=== PATIENT | male | born 1975 | race Caucasian/White ===

== ENCOUNTER 2021-06-17 08:33 | Outpatient (CLI) | payer OTHER, SELFPAY ==
--- NOTE | ~2021-06-17 | XR_ITS ---
XR knee RT min 4V DATE: 06/17/2021 09:00 INDICATION: Right knee pain TECHNIQUE: 4 views COMPARISON: None FINDINGS: Mild periarticular spurring at the patellofemoral joint. There is moderately prominent loss of height at the medial compartment. No fracture or dislocation or joint effusion. No radiopaque intra-articular loose body or chondrocalc inosis. No periosteal reaction or bone destruction. IMPRESSION: Mild patellofemoral osteoarthrosis Moderately prominent loss of height of medial compartment joint space Reviewed, dictated and finalized at location B.
== END 2021-06-17 08:34 | disposition home or self-care (01) ==
LOC: CHSIMG 08:39
PROVIDERS: PCP Family Medicine; Visit Provider Orthopaedic Surgery
DX: M25.561 Pain in right knee (principal)
CPT/HCPCS: 73564

== ENCOUNTER 2021-06-25 01:51 | Day surgery (SDC) | payer OTHER, SELFPAY ==
[2021-06-23 09:22] VITALS: BMI 33.2
--- NOTE | 2021-06-23 09:41 | PC.NURSE ---
Report to the Outpatient Waiting Room, entrance under the green pavilion located off [facility], at 0830 on 06-25-21. OR Time: 1030. - You and your visitor will be asked a series of questions to screen for COVID 19 for your protection. - Only one visitor is allowed at this time. - The patient visitor is requested to leave or wait in car when not with patient. - A mask is required within the hospital. Patients may have clear liquids (water, carbonated beverages, clear teas, apple juice) until 3 hours prior to surgery with a maximum of 20 ounces. 0730 - No food from midnight until time of surgery - Infants may have breast milk until 4 hours before surgery, infant formula 6 hours prior to surgery. - Children will be allowed to drink immediately following surgery. If applicable, please bring a bottle or sippy cup to assist with drinking. Juice, water, soda, and popsicles are readily available. For infants on formula, please bring formula the day of surgery. Pacifiers are allowed. Take the following medications with a SIP of water the morning of surgery: [place] if needed Medications to discontinue per physician: N/A Please no make-up, nail wolof, hairspray, perfume, deodorant, or body powder the day of surgery. No jewelry (including any body piercings) or valuables the day of surgery, leave them at home. Please take a shower or bath the night before, or the morning of, surgery with an antibacterial soap. Wear comfortable, loose fitting clothing. Children are encouraged to wear pajamas. - Jewelry must be removed prior to entering the operating room. Rings and piercings that are not removed may be cut off. - The hospital will not accept responsibility for valuables. - Please leave all valuables, including medications, at home the day of surgery. If you are going home after surgery, a licensed route delivery driver must drive you home. - NO public transportation without another adult. - We recommend that an adult stay with you for 24 hours following discharge. - We also recommend that you do not drive, make important decision, drink alcoholic beverages, or take any drugs that were not prescribed by your health care provider for at least 24 hours after your discharge time. For Pediatric surgeries, we recommend two adults accompany the child home (only one inside the building at this time). Follow any additional instructions given to you from your surgeon. If you or anyone in your household have experienced Covid symptoms in the past week, please notify your surgeon or the nurse liaison at the phone number below for possible testing. Telephone instructions given to Paul Krueger and asked if any additional questions and then verbalized understanding. Patient advised to call surgeon office or pre surgery nurse liaison [phone] if any additional questions.
--- NOTE | 2021-06-24 09:34 | WPDANESEPPF ---
Anes - Initial Pre Proc Eval Procedure: Operation Date: 06/25/21 10:30 Proposed Procedures p Right Knee Arthroscopy - Shad Meza MD Date/Time: 06/24/21 09:34 Surgeon: Shad Meza MD Pre Op Diagnosis: Right Recurrent Medial Meniscus Tear Patient Data Age: 45 Gender: M Height: 1.75 m Weight: 102.06 kg Allergies Allergy/AdvReac Type Severity Reaction Status Date / Time No Known Allergies Allergy Verified 06/25/21 11:55 Home Medications Medication Instructions Recorded Confirmed Type hydrocodone 10 mg-acetaminophen 1 tablet PO Q6H PRN 06/17/21 06/23/21 History 325 mg tablet omeprazole 40 mg capsule,delayed 40 mg PO DAILY 06/17/21 06/25/21 History release cyclobenzaprine 10 mg PO PRN PRN 06/23/21 06/23/21 History Patient hx anesthesia problems: none Family hx anesthesia problems: none Results Review: All pre-operative results and documents have been reviewed as part of the pre-operative evaluation. [facility] Past Medical History Medical History (Updated 06/24/21 @ 09:35 by Jay Crump MD) Chronic GERD HTN (hypertension) Obesity Social History Social History (Updated 06/17/21 @ 09:59 by Holli Lopez MA) Smoking status: Never smoker Tobacco type: smokeless tobacco Second hand tobacco smoke exposure: No Additional smoking assessment comments: quit chewing tobacco in 2010 Alcohol intake: current Drinks per week: 5 Substance use: never Substance use type: does not use Living arrangements: with family Gender identity (if verbalized by the patient): Male Spiritual care concerns: No Anes - Eval Final PreProcedure Day of Procedure 06/24/21 09:34 Patient weight: obese Heart: regular rate and rhythm Lungs: clear to auscultation and normal air movement Airway: Mallampati scale class II Neurological: alert and oriented Last oral intake: >/= 8 hours ASA classification: II Emergent: no Anesthetic plan: proceed Anesthesia type and monitoring: general LMA Results Review: All pre-operative results and documents have been reviewed as part of the pre-operative evaluation. Informed Consent: The patient's anesthetic plan and its attendant risks and benefits were discussed with the patient/family/POA. Questions were solicited and answers provided to the satisfaction of the patient/family/POA.
[2021-06-25] VITALS (7 sets, daily range): BP systolic 116–146; BP diastolic 80–109; PULSE 61–72; RESP 11–20; TEMP 36–36.4; O2SAT 93–100
--- NOTE | 2021-06-25 07:49 | WPDHPUPDATE1 ---
History and Physical Update Update Date/Time: 06/25/21 07:49 History and Physical has been reviewed, including an updated exam of the patient. There are NO changes in the patient's condition. Risks, benefits, and alternatives have been discussed and questions answered. Patient agrees to proceed with procedure.
[2021-06-25] MEDS: ACETAMINOPHEN 500 MG TABLET 1000 MG PO (12:20)
[2021-06-25] MEDS: CELECOXIB 200 MG CAPSULE PO (12:21)
[2021-06-25] MEDS: LACTATED RINGERS 1,000 ML 30 ML IV CONT ×2 (12:25→16:06)
[2021-06-25] MEDS: ceFAZolin 2 GM/D5W 50 ML 2 GM/50 ML BAG IVPB (14:32)
[2021-06-25] MEDS: BUPIVACAINE HCL 0.5% PF 30 ML VIAL INFILTRATE (15:20)
[2021-06-25] MEDS: fentaNYL CITRATE INJ (*CRX) 100 MCG/2 ML VIAL 25 MCG IV PUSH ×4 (16:23→16:35)
--- NOTE | 2021-06-25 16:23 | W.PM.PROC2 ---
Procedure Note - Detailed Date of Procedure 06/25/21 Pre-op Diagnosis Right Recurrent Medial Meniscus Tear Post-op Diagnosis Same Procedure Performed RIGHT KNEE SCOPE Surgeon Shad Meza MD Anesthesia General Findings MEDIAL MENISCUS RECURRENT TEAR, POSTERIOR ROOT TEAR WITH RADIAL COMPONENT Description of Procedure PATIENT WAS TAKEN TO THE OR. RIGHT LEG WAS PREPPED AND DRAPED STERILE. TROCARS WERE PLACED IN THE USUAL FASHION. CAMERA WAS INTRODUCED. THERE WAS CHONDROMALACIA TO THE PATELLA FEMORAL JOINT. THE MEDIAL COMPARTMENT SHOWED CHONDROMALACIA TO THE MEDIAL FEMORAL CONDYLE. A SHAVER WAS USED TO PREFORM A CHONDROPLASTY. THERE WAS A COMPLEX MEDIAL MENISCUS TEAR. THIS APPEARED TO BE CONSISTENT WITH A RECURRENT TEAR. THERE WAS EVIDENCE OF HEALING OF THE FORMER TEAR AND THE NEW TEAR WAS ALSO EVIDENT. THE TEAR WAS RESECTED WITH A BITER AND A SHAVER DOWN TO A SMOOTH BASE. THERE WAS ALSO A RADIAL TEAR AT THE POSTERIOR HORN ROOT. THIS WAS ALSO RESECTED WITH A BITER AND A SHAVER TO A SMOOTH BASE. SYNOVITIS WAS IDENTIFIED. SYNOVECTOMY WAS PREFORMED. THE ACL WAS INTACT. THE LATERAL MENISCUS WAS NOT TORN. THE LATERAL COMPARTMENT HAD MINIMAL CHONDROMALACIA AT THE LATERAL PLATEAU. THE PATELLO FEMORAL JOINT HAD NO CHONDROMALACIA. SYNOVECTOMY WAS PREFORMED IN THE SUPERIOR MEDIAL COMPARTMENT. THE WOUNDS WERE APPROXIMATED WITH 4.0 NYLON. STERILE DRESSING WAS APPLIED. PATIENT WAS EXTUBATED. Estimated Blood Loss 5 Complications No immediate complications Condition Stable Disposition PACU
[2021-06-25] MEDS: oxyCODONE HCL (*CRX) 5 MG TAB IR PO (17:20)
== END 2021-06-25 17:55 | disposition home or self-care (01) ==
PROVIDERS: PCP Family Medicine; Visit Provider Orthopaedic Surgery
PROC: (CPT 29870; principal; 2021-06-25 13:30)
DX: M23.231 Derangement of other medial meniscus due to old tear or injury, right knee (principal); M94.261 Chondromalacia, right knee; M65.861 Other synovitis and tenosynovitis, right lower leg; I10 Essential (primary) hypertension; K21.9 Gastro-esophageal reflux disease without esophagitis; E66.9 Obesity, unspecified; Z68.33 Body mass index [BMI] 33.0-33.9, adult; Z87.891 Personal history of nicotine dependence
CPT/HCPCS: 29881; A9270; J0690; J1100; J2250; J2405; J2704; J3010; J7120